=== PATIENT | female | born 1950 | race Hispanic/Latino ===

== ENCOUNTER 2016-03-26 09:39 | Emergency (ER) | payer OTHER ==
[~2016-03-26] VITALS: Ht 159.4 cm; Wt 93.6 kg
[~2016-03-26 09:39] MED LIST: METH-313 PO; NAPR500T PO; TRAM50TA2 PO
[2016-03-26 09:41] VITALS: BP 177/95; PULSE 100; RESP 30; O2SAT 99
--- NOTE | 2016-03-26 09:51 | ED.REPORT ---
HPI-General Illness Date of Service Mar 26, 2016 ED Provider: The patient is a 65 year old female with history of serous cancer, diabetes mellitus, and hypertension, who was sent to the emergency department from urgent care. Over the last few days she has noticed a cough, fever, chills, nausea, post-tussive vomiting, myalgias, and generalized weakness. She denies abdominal pain, diarrhea, dysuria, hematuria. She has been eating and drinking normally. Her last chemotherapy treatment was on . Her oncologist is Dr. Fleming. She did not get a flu shot this year. Her daughter was sick last week. Nursing Notes Stated Complaint: FEVER Chief Complaint: General Complaint Nursing Notes Reviewed: Yes Allergies: Coded Allergies: Sulfa (Sulfonamide Antibiotics) (Verified Allergy, Intermediate, 08/31/15) Eymhofz-Ghi-Onx Reductase Inhibitor (Verified Adverse Reaction, Severe, Nausea,Vomiting, 03/26/16) acetaminophen (Verified Adverse Reaction, Severe, Rash,Itching,, 03/26/16) hydrocodone (Verified Adverse Reaction, Severe, Rash,Itching,, 03/26/16) clemastine (Verified Adverse Reaction, Unknown, 03/26/16) Scheduled Amoxicillin/Clav K 875-125 mg (Augmentin 875-125 mg) 1 Each Tablet 1 TABLET PO BID Fluticasone Propionate (Fluticasone Propionate Nasal) 16 Gm [place].susp 1 SPRAY NS BID Hydrochlorothiazide (Hydrochlorothiazide) 25 Mg Tablet 25 MG PO DAILY Insulin Human Lispro (HumaLOG U100 Insulin Vial) 100 Unit/Ml Unit Unknown Dose SUBQ ACHS Check blood sugars before meals and at bedtime. Use correction factor only before meals. Blood Sugar Lispro Correction: <151, 0 units; 151-175, 1 unit; 176-200, 2 units; 201-225, 3 units; 226-250, 4 units; 251-275, 5 units; 276-300 , 6 units; 301-325, 7 units; 326-350, 8 units; 351-375, 9 units; 376-400, 10 units; >400, 12 units. Levofloxacin (Levaquin) 750 Mg Tablet 750 MG PO DAILY Lisinopril (Lisinopril) 40 Mg Tablet 40 MG PO DAILY Loratadine (Claritin) 10 Mg Capsule 10 MG PO DAILY Metformin (Metformin) 500 Mg Tablet 1,000 MG PO DAILY Omeprazole (Omeprazole) 20 Mg Capsule.dr 20 MG PO DAILY Scheduled PRN Albuterol HFA (Proair HFA) 8.5 Gm Hfa.aer.ad 2 PUFFS INHALATION Q4H PRN PRN For Shortness of Breath Benzonatate (Tessalon Perle) 100 Mg Capsule 100 MG PO TID PRN PRN For Cough Naproxen (Naprosyn) 500 Mg Tablet 500 MG PO BID PRN PRN For Pain Ondansetron (Ondansetron) 8 Mg Tablet 8 MG PO DIRECTED PRN PRN For Nausea Prochlorperazine Maleate (Prochlorperazine) 10 Mg Tablet 10 MG PO Q8 PRN PRN For Nausea/Vomiting General Time Seen by MD: 09:50 Chief Complaint Fever Hx Obtained From: Patient, Spouse Arrived By: Walk-in Sudden in Onset?: No Onset Occurred: 3 days ago Symptom Duration: Since onset Quality: Painful Severity: Current: Moderate Severity: Maximum: Moderate Recent Healthcare: No recent hospitalization, Recent doctor visit Similar Sx Previous: No Past Medical History Past Medical History Serous cancer Reports: Diabetes mellitus, Hypertension Past Surgical History Knee surgery Hysterectomy Appendectomy Lymphnode removal and biopsy Port-a-cath Colonoscopy Family History Noncontributory Smoking History Unknown if Ever Smoker Social History Drug Use: Denies drug use Other Social History: Good social support, Local resident Ambulatory Status Independent Review of Systems Full Review of Systems Constitutional: Reports: Chills, Fatigue, Fever, Malaise, Weakness - generalized Respiratory: Reports: Non-productive cough GI: Reports: Nausea, Vomiting (post-tussive), Denies: Abdominal pain, Diarrhea Female: Denies: Dysuria, Hematuria, Urinary frequency, Urinary urgency, Urination decreased, Urination increased Musculoskeletal: Reports: Myalgia Neurologic: Reports: Weakness Complete sys rev & neg: except as marked. Physical Exam Vital Signs Vital Signs Date Time Temp Pulse Resp B/P Pulse Ox O2 Delivery O2 Flow Rate FiO2 03/26/16 13:09 36.6 84 21 142/79 100 Room Air 03/26/16 13:05 84 21 142/79 100 Room Air 03/26/16 11:18 99 27 147/68 97 03/26/16 10:51 78 26 98 Room Air 03/26/16 10:29 88 20 158/85 98 Room Air 03/26/16 09:41 36.6 100 30 177/95 99 Initial VS: Reviewed Head / Eyes: Atraumatic, Normocephalic, PERRL ENT: Mucous membranes moist, Conjunctiva normal, No scleral icterus Neck: Supple, Non-tender, Full range of motion Abdomen / GI: Soft, Non-tender, No guarding, No rebound, No distention Back: No CVA tenderness Extremities: Vascular intact, Neuro intact, No swelling, No tenderness Skin: Warm, Dry, No cyanosis Neurologic: Alert, Oriented, Nonfocal Psychiatric: Mood/affect normal, Behavior normal, Normal thought content General/Constitutional: Awake, Alert, Cooperative Respiratory / Chest: Breath sounds = bilat, No respiratory distress Mild coarse wheezes bilaterally Cardiovascular: Heart rate NL, Regular rhythm, Heart sounds NL, No murmurs, No rubs, Cap refill not delayed, Peripheral circulation NL Interpretation & Diagnostics Interpretation & Diagnostics: Negative for influenza A and B Lab Results Interpretation Result Diagram: 03/26/16 1010 03/26/16 1010 Test 03/26/16 10:10 03/26/16 11:27 White Blood Count 5.6th/mm3 (3.8-10.1) Red Blood Count 3.15mil/mm3 (3.90-5.20) Hemoglobin 9.7g/dL (12.0-15.6) Hematocrit 29.6% (35.0-46.0) Mean Corpuscular Volume 94.0fL (81-100) Mean Corpuscular Hemoglobin 30.8pg (27.0-35.0) Mean Corpuscular Hemoglobin Concent 32.8% (32.0-37.0) Red Cell Distribution Width 15.4% (12.3-15.4) Platelet Count 266bil/L (150-400) Neutrophils (%) (Auto) 51.5% (40-74) Lymphocytes (%) (Auto) 37.1% (14-46) Monocytes (%) (Auto) 8.1% (4-12) Eosinophils (%) (Auto) 1.3% (0-5) Basophils (%) (Auto) 0.4% (0-3) Sodium Level 137mEq/L (134-144) Potassium Level 4.6mEq/L (3.5-5.2) Chloride Level 103mEq/L (97-108) Carbon Dioxide Level 18mmol/L (18-29) Blood Urea Nitrogen 24mg/dL (8-27) Creatinine 0.81mg/dL (0.57-1.00) Estimat Glomerular Filtration Rate 102mL/min (>59) Glucose Level 190mg/dL (60-99) Lactic Acid Level 1.9mmol/L (0.4-2.0) Calcium Level 9.5mg/dL (8.5-10.1) Total Bilirubin 0.2mg/dL (0.0-1.2) Aspartate Amino Transf (AST/SGOT) 15U/L (0-50) Alanine Aminotransferase (ALT/SGPT) 16U/L (0-32) Alkaline Phosphatase 78U/L (25-165) Troponin T 0.010ug/L (0.0-0.011) Total Protein 6.7g/dL (6.4-8.4) Albumin 3.9g/dL (3.4-5.0) Urine Color Straw (YELLOW) Urine Appearance Hazy (CLEAR,HAZY) Urine pH 5.5 (5.0-8.0) Urine Specific [place] 1.021 (1.003-1.035) Urine Protein Negativemg/dL (NEG,TRACE) Urine Glucose (UA) Negativemg/dL (NEGATIVE) Urine Ketones Negativemg/dL (NEGATIVE) Urine Occult Blood Negative (NEGATIVE) Urine Nitrite Positive (NEGATIVE) Urine Bilirubin Negative (NEGATIVE) Urine Urobilinogen Normalmg/dL (NORMAL) Urine Leukocyte Esterase Negative (NEGATIVE) Urine RBC 0-2/hpf (0-2) Urine WBC 6-10/hpf (0-5) Urine Epithelial Cells Occasional/hpf (NONE-MOD) Urine Crystals None seen (NONE SEEN) Urine Bacteria Many/hpf (NONE-FEW) Urine Hyaline Casts None/lpf (NONE) Urine Granular Casts None seen (NONE SEEN) Urine Waxy Casts None seen (NONE SEEN) Urine Red Blood Cell Casts None seen (NONE SEEN) Urine White Blood Cell Casts None seen (NONE SEEN) Urine Mucus None seen (None Seen) Urine Trichomonas None seen (NONE SEEN) Urine Yeast None (NONE SEEN) Urinalysis Comment None Urine Culture Reflexed Indicated X-Ray Chest Interpretation Chest Xray Interpretation: IMPRESSION: No acute cardiopulmonary disease process. Dictated by: Belia Langston MD, PhD on 03/26/2016 at 10:40 Interpretation / Wet Read by: Interpret - Radiologist CT Chest Interpretation IMPRESSION: No pulmonary embolus. Dictated by: Belia Langston MD, PhD on 03/26/2016 at 11:56 Study type: CT pulm angiogram Interpretation / Wet Read by: Interpret - Radiologist Re-Eval/Medical Decision Med Decision/Clinical Course Cardiopulmonary workup, no obvious pneumonia but given that she is on chemotherapy with a productive cough she likely has bronchitis which we will treat with antibiotics to prevent a more life-threatening infection. She is afebrile, she is not neutropenic, incidentally she may have a urinary tract infection. She does not meet overall sepsis criteria. She is feeling better. Augmentin, Levaquin, Tessalon Perles, albuterol HFA prescribed. Return precautions given. Source of Hx: Old records, Family Time of Eval: 12:05 Re-Evaluation/Progress Note: Rechecked the patient. Discussed results, diagnosis, and plan for discharge. With further questioning the patient admits to urinary urgency. All questions were addressed. Counseled Regarding: Diagnosis, Lab results, Need for follow-up, When/why to return to ED Discharge & Departure Primary Impression: URI (upper respiratory infection) URI type: unspecified URI Qualified Code: J06.9 - Acute upper respiratory infection, unspecified Additional Impression: UTI (urinary tract infection) Urinary tract infection type: site unspecified Disposition: Home Discharge Condition All VS Reviewed: Yes Condition: Stable Patient Instructions: Upper Respiratory Infection (ED) Additional Instructions: Thank you for entrusting us with your care today. Your workup is reassuring. There is no sign of a blood clot, heart attack, or pneumonia. There is evidence of a urinary tract infection. Take Levaquin, Augmentin, and Tessalon pearls as prescribed.. Make sure to rest and drink plenty of fluids. Followup with your regular doctor next week for recheck. Return to the emergency department if you develop difficulty breathing, chest pain, vomiting, fever, or any other new or concerning symptoms. Referrals: Cheyenne Rutherford MD (PCP) Scribe Attestation Portions of this note were transcribed by Sonja Ye. I, Dr. Plata personally performed the history, physical exam and medical decision-making; I reviewed and confirmed the accuracy of the information in the transcribed note. Signed by: Chyna Mar, 03/25/2016 at 1230. copies to: Cheyenne Rutherford MD, Timothy S DO Mar 26, 2016 09:51 Sonja Ye Mar 26, 2016 09:53
[2016-03-26] MEDS ORDERED: 0.9% Sodium Chloride 1,000 ML IV SCH (10:15)
[2016-03-26] MEDS ORDERED: INSLIS SUBQ (10:27)
[2016-03-26] MEDS ORDERED: METF500T4 PO (10:27)
[2016-03-26] MEDS ORDERED: LISI40TA PO (10:27)
[2016-03-26] MEDS ORDERED: ONDA-54 PO (10:27)
[2016-03-26] MEDS ORDERED: PROC10TA PO (10:27)
[2016-03-26] MEDS ORDERED: FLUT16SP NS (10:27)
[2016-03-26] MEDS ORDERED: HYDR25TA4 PO (10:27)
[2016-03-26] MEDS ORDERED: LORA10CA PO (10:27)
[2016-03-26] MEDS ORDERED: OMEP20CA11 PO (10:27)
[2016-03-26 10:29] VITALS: BP 158/85; PULSE 88; RESP 20; O2SAT 98
[2016-03-26 10:33] LABS: BASOPHILS % (AUTO) 0.4 % (0-3); EOSINOPHILS % (AUTO) 1.3 % (0-5); MONOCYTES % (AUTO) 8.1 % (4-12); Mean Corpuscular Hemoglobin 30.8 pg (27.0-35.0); NEUTROPHILS % (AUTO) 51.5 % (40-74); Platelet Count 266 bil/L (150-400)
[2016-03-26] MEDS ORDERED: Albuterol 2.5 mg/3 mL Inhalation Solution NEB ONE (10:35)
--- NOTE | 2016-03-26 10:43 | DRSVH ---
PROCEDURE: X-RAY CHEST ONE VIEW, PORTABLE ([id number]) INDICATIONS: fever/cough/on chemo TECHNIQUE: One view of the chest was acquired. COMPARISON: [facility], CR, XR CHEST 2VW, 03/03/2015, 8:44. FINDINGS: Surgical changes and devices: Left chest wall Port-A-Cath. The Port-A-Cath projects to the mid SVC. Lungs and pleura: No pleural effusions or pneumothorax. Lungs are clear. Mediastinum: Mediastinal contours appear normal. Heart size is normal. Bones and chest wall: No suspicious bony lesions. Overlying soft tissues appear unremarkable. IMPRESSION: No acute cardiopulmonary disease process. Dictated by: Belia Langston MD, PhD on 03/26/2016 at 10:40 Approved by: Belia Langston MD, PhD on 03/26/2016 at 10:41
[2016-03-26 10:51] VITALS: PULSE 78; RESP 26; O2SAT 98
[2016-03-26 11:18] VITALS: BP 147/68; PULSE 99; RESP 27; O2SAT 97
[2016-03-26 11:41] LABS: APPEARANCE,URINE HAZY (CLEAR,HAZY); COLOR,URINE STRAW (YELLOW); OCCULT BLOOD,URINE NEGATIVE (NEGATIVE); PH,URINE 5.5 (5.0-8.0); UROBILINOGEN,URINE NORMAL (NORMAL)
--- NOTE | 2016-03-26 12:01 | DRSVH ---
PROCEDURE: CT ANGIO CHEST PULMONARY EMBOLISM ([id number]) INDICATIONS: active cancer, dyspnea, chest tightness TECHNIQUE: After the administration of intravenous contrast, 2 mm thick sections acquired from the pulmonary api nithya to the posterior costophrenic angles. 3-dimensional maximum intensity projection (MIP) coronal a nd sagittal reformats were then acquired through the thorax. For radiation dose reduction, the follo wing was used: automated exposure control, adjustment of mA and/or kV according to patient size. COMPARISON: [facility], CT, CT CHEST ABDOMEN PELVIS W CONTRAST, 02/11/2016, 1:00 PM. FINDINGS: Image quality: Excellent. Pulmonary arteries: Pulmonary arteries are normal in size, and demonstrate no intraluminal filling d efects to suggest central pulmonary embolism. Lungs and pleura: Lungs are clear. No pleural effusions or pneumothorax. Central and peripheral ai rways are patent. Mediastinum: Heart size is normal, without pericardial effusion. No mediastinal or hilar adenopathy . Thoracic aorta is normal in caliber and enhancement. Esophagus is normal in caliber, without hiat al hernia. Bones and chest wall: Left chest wall Port-A-Cath is noted. No suspicious bony lesions. Ribs and t horacic spine appear intact throughout. Thyroid gland is within normal limits. No axillary or supra clavicular adenopathy. Abdomen: Visualized upper abdominal solid organs appear normal in the early arterial phase of enhanc ement. IMPRESSION: No pulmonary embolus. Dictated by: Belia Langston MD, PhD on 03/26/2016 at 11:56 Approved by: Belia Langston MD, PhD on 03/26/2016 at 12:00
[2016-03-26] MEDS ORDERED: AMOX-366 PO (12:17)
[2016-03-26] MEDS ORDERED: BENZ-12 PO (12:17)
[2016-03-26] MEDS ORDERED: LEVO750T9 PO (12:17)
[2016-03-26] MEDS ORDERED: ALBU8.5H2 INHALATION (12:19)
[2016-03-26] MEDS ORDERED: Albuterol HFA 60 Puff 8 Gm Inhaler INHALATION ONE (12:20)
[2016-03-26] MEDS ORDERED: HepLOK Flush 100 unit/mL 5 mL Inj ONE (12:55)
[2016-03-26 13:05] VITALS: BP 142/79; PULSE 84; RESP 21; O2SAT 100
[2016-03-26 13:09] VITALS: BP 142/79; PULSE 84; RESP 21; O2SAT 100
== END 2016-03-26 13:09 | disposition home or self-care (01) ==
LOC: SED 09:39
DX: J06.9 Acute upper respiratory infection, unspecified (principal); N39.0 Urinary tract infection, site not specified; B96.89 Other specified bacterial agents as the cause of diseases classified elsewhere; E11.9 Type 2 diabetes mellitus without complications; I10 Essential (primary) hypertension; Z85.89 Personal history of malignant neoplasm of other organs and systems; Z79.4 Long term (current) use of insulin; Z79.84 Long term (current) use of oral hypoglycemic drugs; Z92.21 Personal history of antineoplastic chemotherapy; Z88.2 Allergy status to sulfonamides; Z88.8 Allergy status to other drugs, medicaments and biological substances; Z88.6 Allergy status to analgesic agent; Z88.5 Allergy status to narcotic agent
CPT/HCPCS: 36415; 71010; 71275; 80053; 81000; 83605; 84484; 85025; 87040; 87077; 87086; 87088; 87186; 87804; 94664; 96360; 96361; 99285; J1642; J7030; J7613; Q9967